=== PATIENT | female | born 1985 | race Caucasian/White ===

== ENCOUNTER 2017-03-29 06:37 | Emergency (ER) | payer MEDICAID ==
[~2017-03-29] VITALS: Ht 162.6 cm; Wt 148.4 kg
[2017-03-29 06:47] VITALS: Ht 162.6 cm; Wt 148.4 kg
[2017-03-29 07:50] VITALS: BP 121/78
== END 2017-03-29 07:50 | disposition home or self-care (01) ==
LOC: ED 06:37
DX: L03.113 Cellulitis of right upper limb (principal)
CPT/HCPCS: J0295; J1885

== ENCOUNTER 2017-04-29 05:58 | Emergency (ER) | payer MEDICAID ==
[~2017-04-29] VITALS: Ht 162.6 cm; Wt 146.6 kg
[2017-04-29 06:26] VITALS: Ht 162.6 cm; Wt 146.6 kg
[2017-04-29 07:13] VITALS: BP 153/85
== END 2017-04-29 07:13 | disposition home or self-care (01) ==
LOC: ED 05:58
DX: H66.92 Otitis media, unspecified, left ear (principal); M62.830 Muscle spasm of back

== ENCOUNTER 2017-07-21 13:34 | Emergency (ER) | payer MEDICAID ==
[~2017-07-21] VITALS: Ht 165.1 cm; Wt 146.1 kg
[2017-07-21 13:37] VITALS: Ht 165.1 cm; Wt 146.1 kg
[2017-07-21 15:14] LABS: BASOPHIL % 0.6 % (0-2); PLATELET COUNT 263 x10^3mcL (130-400)
[2017-07-21 15:15] LABS: CALCIUM 8.8 mg/dL (8.5-10.1); CARBON DIOXIDE 33.1 mmol/L (21-32); CHLORIDE SERUM 104 mmol/L (98-107); CREATININE SERUM 0.8 mg/dL (0.6-1.0); GFR1 > 60 mL/min; GLUCOSE SERUM 108 mg/dL (74-106); POTASSIUM SERUM 4.2 mmol/L (3.5-5.1); SODIUM SERUM 141 mmol/L (136-145)
[2017-07-21 15:17] LABS: RED CELL DISTRIBUTION WIDTH 14.6 % (11.5-14.5)
[2017-07-21 15:46] LABS: T3 TOTAL 1.18 ng/mL
[2017-07-21 15:55] LABS: FREE T4 0.91 ng/dL (0.76-1.46); FREE THYROXINE INDEX 2.2 ug/dL (1.4-4.5)
[2017-07-21 16:57] VITALS: BP 118/58
== END 2017-07-21 16:57 | disposition home or self-care (01) ==
LOC: ED 13:34
PROVIDERS: Emergency Medicine
DX: R00.2 Palpitations (principal); H60.92 Unspecified otitis externa, left ear
CPT/HCPCS: 36415; 83880; 84439; 85378; Q0092

== ENCOUNTER 2017-10-14 16:44 | Emergency (ER) | payer MEDICAID ==
[~2017-10-14] VITALS: Ht 162.6 cm; Wt 150.4 kg
[2017-10-14 16:51] VITALS: Ht 162.6 cm; Wt 150.4 kg
[2017-10-14 18:59] VITALS: BP 117/75
== END 2017-10-14 18:59 | disposition home or self-care (01) ==
LOC: ED 16:44
DX: R22.1 Localized swelling, mass and lump, neck (principal)